=== PATIENT | male | born 2005 | race Caucasian/White ===

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

== ENCOUNTER 2024-01-21 08:55 | Outpatient (REF) | payer MEDICAID, SELFPAY ==
[2024-01-21 13:13] LABS: Anion Gap 10 (12-20); Blood Urea Nitrogen 15 mg/dL (9-16); Calcium 9.5 mg/dL (8.4-10.2); Carbon Dioxide 29 mmol/L (22-29); Chloride 104 mmol/L (96-108); Cholesterol 209 mg/dL (<200); Estimated Glomerular Filt Rate > 60; Glucose Random 78 mg/dL (60-115); HDL Cholesterol 35 mg/dL (>40); LDL Cholesterol Calculated 145 mg/dL (<100); Potassium 3.7 mmol/L (3.3-5.1); Sodium 139 mmol/L (135-145); Triglycerides 146 mg/dL (<150)
== END 2024-01-21 08:56 | disposition home or self-care (01) ==
LOC: HO.HHCL 08:55
PROVIDERS: Visit Provider Nurse Practitioner Primary Care
DX: I10 Essential (primary) hypertension (principal); E78.5 Hyperlipidemia, unspecified
CPT/HCPCS: 36415; 80048; 80061

== ENCOUNTER → 2024-07-15 09:46 | Outpatient (REF) | payer MEDICAID, SELFPAY | LOC: HO.SL 09:46 | PROVIDERS: PCP Nurse Practitioner Primary Care; Visit Provider Nurse Practitioner Primary Care | DX: G47.33 Obstructive sleep apnea (adult) (pediatric) (principal) | CPT/HCPCS: 95806 ==

== ENCOUNTER → 2024-07-15 19:00 | Outpatient (BNV) | payer MEDICAID, SELFPAY | PROVIDERS: PCP Nurse Practitioner Primary Care; Visit Provider Internal Medicine | DX: G47.33 Obstructive sleep apnea (adult) (pediatric) (principal) | CPT/HCPCS: 95806 ==

== ENCOUNTER 2025-02-05 10:23 | Outpatient (REF) | payer MEDICAID, SELFPAY ==
--- OUTSIDE RECORDS SUMMARY | 2025-02-05 11:29 | XMS_ITS | Clinical Summary ---
Author Organization [employer] Address [address] [facility] 7[address] [place] [address] Care Team Providers Care Level Vial Setter Name Role Phone Johanny Kruger DAYO Primary Care Provider Allergies Active Allergy Reactions Criticality Noted Date Comments Aspirin 05/22/2018 Penicillins 05/22/2018 Shellfish Allergy Anaphylaxis High 11/27/2022 Medications lurasidone (Latuda) 20 MG tablet Take 20 mg by mouth Once per day. Active ibuprofen 800 MG tablet Take 800 mg by mouth if needed in the morning, at noon, and at bedtime. 2 Active Fluocinolone Acetonide Scalp 0.01 % oilIndications:Se borrheic dermatitis Use as directed, apply to scalp and keep on for at least 4 hours and up to 8 hours. Apply at bedtime and wash off in AM. 118 mL 1 4 Active albuterol (Ventolin HFA) 108 (90 Base) MCG/ACT inhalerIndication s:Mild intermittent asthma in adult without complication Inhale 2 puffs by mouth every 4 to 6 hours as needed for wheezing; adminster with spacer 36 g 4 Active Blood Pressure kitIndications:Hy pertension, unspecified type 1 kit in the morning. 1 kit 4 Active montelukast (Singulair) 10 MG tabletIndications :Mild intermittent asthma, unspecified whether complicated Take 1 tablet (10 mg) by mouth Once daily. 90 tablet 3 5 Active ketoconazole (NIZOral) 2 % shampooIndication s:Seborrheic dermatitis Use as directed, every 2-3 days 120 mL 5 5 Active EPINEPHrine (Epipen) 0.3 MG/0.3ML injection syringeIndication s:Shellfish allergy Inject 0.3 mL (0.3 mg) as directed 1 (one) time if needed for anaphylaxis. 2 each 5 Active Tirzepatide-Weigh t Management 10 MG/0.5ML solution auto-injectorIndi cations:Class 3 severe obesity with serious comorbidity and body mass index (BMI) of 50.0 to 59.9 in adult, unspecified obesity type Inject 0.5 mL (10 mg) under the skin 1 (one) time per week. 2 mL 2 5 Active triamcinolone (Kenalog) 0.1 % creamIndications: Irritant contact dermatitis due to other chemical products Apply twice daily to affected area 45 g 5 Active Active Problems Problem Noted Date Diagnosed Date Nocturnal hypoxemia 08/19/2024 Class 3 severe obesity with serious comorbidity and body mass index (BMI) of 45.0 to 49.9 in adult 08/19/2024 Elevated hemoglobin A1c 02/01/2023 Overview (02/01/2023): Previously ordered, encouraged to get drawn Seborrheic dermatitis 02/01/2023 Elevated lipids 02/01/2023 Overview (08/19/2024): Lifestyle recommendations to improve heart health & lower cholesterol: be as active as able, ideally exercise 150min moderate intensity or 75min vigorous intensity weekly; increase intake of vegetables, fruits, whole grains, fish. Try to minimize intake of sugary or greasy food and drink. Use olive oil or vegetable, peanut, canola, or similar oil for cooking. Decrease or stop drinking alcohol if you drink, quit/decrease smoking if you smoke. 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 Hypertensive disorder 05/22/2018 Overweight 05/22/2018 ILDA (obstructive sleep apnea) 05/22/2018 Overview (08/19/2024): With nocturnal hypoxemia Last sleep study June 2024 Recommended auto CPAP 6 to 20 cm DME Rx generated 08/19/24 Gave patient info to schedule sleep medicine for follow-up Encounters Date Type Department Care Team Description 02/05/2025 10:00 AM EDT Office Visit [address] [address] Johanny Kruger ANP Class 3 severe obesity with serious comorbidity and body mass index (BMI) of 45.0 to 49.9 in adult, unspecified obesity type (Primary Dx); ILDA (obstructive sleep apnea); Primary hypertension; Elevated lipids; Irritant contact dermatitis due to other chemical products 02/05/2025 Travel 02/04/2025 Telephone [facility] MEDICINE [address] [place] [phone] Yash Conner [place] CHART PREP 01/26/[address] [address] Johanny Kruger ANP Durable Medical Equipment 01/09/2025 Telephone [facility] MEDICINE [address] [place] [phone] Johanny Kruger ANP Durable Medical Equipment 12/12/2024 Telephone [facility] MED & PEDS [address] [place] [address] Johanny Kruger ANP Med Refill 12/05/2024 Population Health Risk Score [facility] () Department [address] [address] Provider, Population Health Generic 12/02/2024 Telephone [facility] MEDICINE [address] [place] [phone] Johanny Kruger ANP PA 11/12/[address] [address] Johanny Kruger ANP Med Refill; Prior Authorization ([employer]) from Last 3 Months Immunizations Immunization Administration Dates Next Due DTaP 05/05/2008, 5,2004,08/30,2004 HPV 9-Valent 11/02/2015,04/27/2015 HPV, Unspecified 06/30/2015 Hep A, ped/adol, 2 dose 02/04/2008,06/08/2007 Hep B, Adolescent or Pediatric 2004,2003,2004 HiB, unspecified 08/03/2005,2004 Hib (PRP-T) 2004 IPV 05/05/2008, 5,2004,06/29 Influenza injectable quadriv alent preservative free 10/27/2022,11/10/2021,09/21/2020,06/23,07/01/2018 Influenza, seasonal, injecta ble, preservative free 11/07/2024 MMR 05/29/2018,05/05/2008,2004 Meningococcal MCV4P ACYW-135 11/19/2020,04/27/20 15 Pfizer Covid-19 Vaccine 12+ 01/30/2021, Pfizer Covid-19 Vaccine 12+ Bivalent 10/27/2022 Pneumococcal Conjugate PCV 13 2004, 004,2004 TD (adult), 2 Lf tetanus tox oid, preservative free, adsorbed 05/16/2024 Tdap 05/04/2014 Varicella 05/05/2008,05/09/2005 Social History Tobacco Use Types Packs/Day Years Used Date Smoking Tobacco: Never Passive Smoke Exposure: Never Smokeless Tobacco: Never Tobacco Cessation:Counseling Given: Not Answered Alcohol Use Standard Drinks/Week Comments Never 0 (1 standard drink = 0.6 oz pur e alcohol) Depression Answer Date Recorded Patient Health Questionnaire-9 Score 0 02/05/2025 Patient Health Questionnaire-9 Score 0 02/05/2025 Last PHQ-9: Questionnaire Data Not on file 0 02/05/2025 Housing Stability Answer Date Recorded What is your housing situation today? I have tonie ramsay 11/15/[address] you li ve. Do you have problems with any of the following? None of the above 11/15/2023 Food Insecurity Answer Date Recorded Within the past 12 months, y ou worried that your food would run out before you got money to buy more: Never True 11/23/2023 Within the past 12 months,th e food you bought just didn't last and you didn't have enough money to get more: Never True 09/2023 Transportation Answer Date Recorded In the past 12 months, has l ack of transportation kept you from medical appts, meetings, work or from getting things needed for daily living? No 11/15/2023 Utilities Answer Date Recorded In the past 12 months, has t he electric, gas, oil or water company threatened to shut off services in your home? No 11/15/2023 Depression Answer Date Recorded Patient Health Questionnaire-2 Score 0 02/05/2025 Internet Access Answer Date Recorded Internet Access Q1 Yes 05/26/2024 Internet Access Q2 Not on file 05/26/2024 Sex and Gender Information Value Date Recorded Sex Assigned at Male 07/24/2022 10:34 AM EDT Legal Sex Male 10:34 AM EDT Gender Identity Male 07/24/2022 10:34 AM EDT Sexual Orientation Straight 07/24/2022 10 :34 AM EDT Last Filed Vital Signs Vital Sign Reading Time Taken Comments Blood Pressure 124/72 02/05/2025 9:36 AM EDT Pulse 79 02/05/2025 9:36 AM EDT Temperature 36.8 ??C (98.2 ??F) 11/07/2024 9:03 AM ES T Respiratory Rate 20 02/05/2025 9:36 AM EDT Oxygen Saturation 98% 11/07/2024 9:03 AM EST Inhaled Oxygen Concentration - - Weight 141 kg (310 lb) 02/05/2025 9:36 AM EDT Height 171 cm (5' 7.32 ) 02/05/2025 9:36 AM EDT Body Mass Index 48.09 02/05/2025 9:36 AM EDT Plan of Treatment Upcoming Encounters Date Type Department Care Team (Late st Contact Info) Description 03/03/2025 8:00 AM EDT Office Visit [facility] ADULT DENTAL [address] [place] [address] Juliette Darnell 06/19/2025 10:00 AM EDT Office Visit [facility] OPTOMETRY [address] [place] [address] Emily Gonzalez, OD [address] [place] [address] Health Maintenance Due Date Last Done Comments Chlamydia and Gonorrhea Screening 2004 HIV Screening 2004 Pneumococcal Vaccine: Pediatrics (0 to 5 Years) and At-Risk Patients (6 to 49) Years) (1 of 1 - PPSV23) 2010 2004, 2004, 2004 Family Planning (PISQ) 2019 Meningococcal B Vaccine (1 of 2 - Standard) 2020 Hepatitis C Screening 2022 COVID-19 Vaccine ( - season) 2024 10/27/2022, 09/13/2021, 01/30/2021, Additional history exists Dental Oral Exam 06/13/2024 12/11/2023, 05/2021, 12/09/2020, Additional history exists Dental X-Ray: Bitewings 12/11/2024 12/11/19 24, 12/09/2020, 10/31/2018 Dental Prophylaxis 02/27/2025 08/28/2024, 0 12/11/2023, 08/02/2021, Additional history exists SDOH Screening 10/24/2025 10/24/2024 Alcohol/Substance Use Screening 11/07/2025 11/07/2024 Depression Screening 02/05/2026 02/05/2025, 02/06/20 25 Tobacco Screening 02/05/2026 02/05/2025 Dental X-Ray: Full Mouth 12/11/2026 024, 10/05/2021, 10/31/2018 Lipid Panel 01/20/2029 01/21/2024, 05/2024, 02/01/2023, Additional history exists DTaP/Tdap/Td Vaccines (8 - Td or Tdap) 05/16/2034 05/16/2024, 05/04/2014, 05/05/2008, Additional history exists Zoster Vaccines (1 of 2) 2054 RSV Patients and Patients Aged 60 years or older (1 - 1-dose 75+ series) 2079 Hepatitis B Vaccines Completed 2004, 2004, 2004 HIB Vaccines Completed 08/03/2005, 03/2004, 2004 Hepatitis A Vaccines Completed 02/04/2008, 06/08/20 07 IPV Vaccines Completed 05/05/2008, 05/2005, 2004, Additional history exists HPV Vaccines Completed 11/02/2015, 03/2015, 04/27/2015 Meningococcal Vaccine Completed 11/19/2020, 015 Influenza Vaccine Completed 11/07/2024, , 11/10/2021, Additional history exists RSV under 20 months Aged Out No longe r eligible based on patient's age to complete this topic Rotavirus Vaccines Aged Out No longer eligible based on patient's age to complete this topic Procedures Procedure Name Priority Date/Time Associated Diagnosis Comments Full PROPHYLAXIS - ADULT Routine 08/28/2024 8:00 AM EST Dental plaque Dental calculus LIPID PANEL, STANDARD Routine 01/21/2024 8:57 AM EDT Elevated lipids INTRAORAL - COMPLETE SERIES OF RADIOGRAPHIC IMAGES Routine 12/11/2023 10:00 AM EDT PERIODIC ORAL EVALUATION - ESTABLISHED PATIENT Routine 12/11/2023 10:00 AM EDT from Last 3 Months or Most Recently Relevant to Health Maintenance Results * (ABNORMAL) Lipid Panel, Standard (01/21/2024 8:57 AM EDT) Triglycerides 146 <150 mg/dL [facility] Comment:Desirable Triglyceri de: less than 90 mg/dLBorderline High Triglyceride: 90-129 mg/dLHigh Triglyceride: greater than 130 mg/dL Cholesterol 209(H) <200 mg/dL [facility] Comment:Desirable Cholestero l: less than 170 mg/dLBorderline High Cholesterol: 170-199 mg/dLHigh Cholesterol: greater than 200 mg/dL LDL Cholesterol Calculated 145(H) <100 mg/dL [facility] Comment:Desirable LDL: less than 110 mg/dLBorderline LDL: 110-129 mg/dLHigh LDL: greater than or equal to 130 mg/dL HDL Cholesterol 35(L) >40 mg/dL [facility] Comment:Desirable HDL: great er than 45 mg/dLBorderline HDL: 40-45 mg/dLLow HDL: less than 40 mg/dL Note: This HDL assay may give artificially low results in patients with liver disease. Blood Venous blood specimen / Unknown 01/21/2024 8:57 AM EDT 01/21/2024 11:32 AM EDT Johanny OSHEA LAB BLOOD ORDERABLES Final Resul t [facility] [address] [place] [address] [phone] from Last 3 Months or Most Recently Relevant to Health Maintenance [place] [address] [place] [address] STANDARD DENTAL-[facility] MEDICAID STAND CHILD Care Teams Level Vial Setter Relationship Specialty Start Date End Date Johanny Kruger ANP [address] [place] [phone] PCP - General Family Medicine 06/01/22
--- OUTSIDE RECORDS SUMMARY | 2025-02-05 11:29 | XMS_ITS | Encounter Summary ---
Author Organization [employer] Address [address] [facility] [address] [place] [address] Care Team Providers Care Game Designer/Creative Director Name Role Phone Johanny Kruger Primary Care Provider [phone] Reason for Visit * Reason Onset Date Comments Script for Blood Pressure Kit 05/07/2023 Encounter Details Date Type Department Care Team ([facility] st Contact Info) Description 05/07/2023 Telephone [facility] MEDICINE [address] [place], [place] [phone] Johanny Kruger ANP [address] [place] [address] Script for Blood Pressure Kit Social History Tobacco Use Types Packs/Day Years Used Date Smoking Tobacco: Never Passive Smoke Exposure: Never Smokeless Tobacco: Never Alcohol Use Standard Drinks/Week Comments Never 0 (1 standard drink = 0.6 oz pur e alcohol) Depression Answer Date Recorded Patient Health Questionnaire-2 Score 0 10/27/2022 Sex and Gender Information Value Date Recorded Sex Assigned at Male 07/24/2022 10:34 AM EDT Legal Sex Male 10:34 AM EDT Gender Identity Male 07/24/2022 10:34 AM EDT Sexual Orientation Straight 07/24/2022 10 :34 AM EDT documented as of this encounter Miscellaneous Notes * Telephone Encounter - Rafy Knight - 05/07/2023 3:41 PM EDT Tc from Fabiana with [facility] informing that they do not do DME script must look for another pharmacy for Bloodpressure Kit. Please contact Fabiana if any questions at [phone] documented in this encounter Plan of Treatment Upcoming Encounters Date Type Department Care Team (Late st Contact Info) Description 03/03/2025 8:00 AM EDT Office Visit [facility] ADULT DENTAL [address] [place], [place] [phone] Juliette Darnell 06/19/2025 10:00 AM EDT Office Visit [facility] OPTOMETRY [address] [place], [place] [phone] Emily Gonzalez, OD [address] [place] [address] documented as of this encounter Visit Diagnoses Not on filedocumented in this encounter Care Teams Game Designer/Creative Director Relationship Specialty Start Date End Date Johanny Kruger ANP [address] [place] [address] PCP - General Family Medicine 06/01/22 documented as of this encounter
--- OUTSIDE RECORDS SUMMARY | 2025-02-05 11:29 | XMS_ITS | Encounter Summary ---
Author Organization [employer] Address [address] [facility] [address] [place] [address] Care Team Providers Care Agricultural Systems Specialist Name Role Phone Johanny Kruger Primary Care Provider [phone] Reason for Visit * Reason Onset Date Comments CHART PREP 02/04/2025 Encounter Details Date Type Department Care Team ([facility] st Contact Info) Description 02/04/2025 Telephone [facility] MEDICINE [address] [place], [place] [phone] Yash Conner [place] CHART PREP Social History Tobacco Use Types Packs/Day Years [...] encounter Miscellaneous Notes * Telephone Encounter - Yash Conner [place] - 02/04/2025 2:39 PM EDT ..Chart Prep Labs: not done Images: not applicable Referrals: complete Vaccines due: PCV20, MEN B Screenings: STI screening Overdue care gaps: PHQ-9, CHAYA-7, and Disability screen documented in this encounter Plan of Treatment Upcoming Encounters Date Type Department Care Team (Late st Contact Info) Description 03/03/2025 8:00 AM EDT Office Visit [facility] ADULT DENTAL [address] [place] [address] Juliette Darnell 06/19/2025 10:00 AM EDT Office Visit [facility] OPTOMETRY [address] [place] [address] Carlos, Emily, OD [address] [place] [address] documented as of this encounter Visit Diagnoses Not on filedocumented in this encounter Additional Health Concerns Assessment Noted Time PHQ-9 Depression Total Score: 0 11/23/19 24 8:59 AM EST documented as of this encounter Care Teams Agricultural Systems Specialist Relationship Specialty Start Date End Date Johanny Kruger ANP [address] [place] [address] PCP - General Family Medicine 06/01/22 documented as of this encounter
--- OUTSIDE RECORDS SUMMARY | 2025-02-05 11:29 | XMS_ITS | Encounter Summary ---
Author Organization [employer] Address [address] [place] [address] Care Team Providers Care Chemical Research Worker Name Role Phone Johanny Kruger Primary Care Provider Encounter Details Date Type Department Care Team (Late st Contact Info) Description 02/05/2025 10:00 AM EDT Office Visit [facility] MEDICINE [address], [place] [id number] Johanny Kruger ANP [address], [place] [id number] Class 3 severe obesity with serious comorbidity and body mass index (BMI) of 45.0 to 49.9 in adult, unspecified obesity type (Primary Dx); ILDA (obstructive sleep apnea); Primary hypertension; Elevated lipids; Irritant contact dermatitis due to other chemical products Social History Tobacco Use Types Packs/Day Years [...] AM EDT documented as of this encounter Last Filed Vital Signs Vital Sign Reading Time Taken Comments Blood Pressure 124/72 02/05/2025 9:36 AM EDT Pulse 79 02/05/2025 9:36 AM EDT Temperature - - Respiratory Rate 20 02/05/2025 9:36 AM EDT Oxygen Saturation - - Inhaled Oxygen Concentration - - Weight 141 kg (310 lb) 02/05/2025 9:36 AM EDT Height 171 cm (5' 7.32 ) 02/05/2025 9:36 AM EDT Body Mass Index 48.09 02/05/2025 9:36 AM EDT documented in this encounter Functional Status * Over the past 2 weeks, how often have you been bothered by any of the following problems? Question Answer Date of Assessment Author Little interest or pleasure in doing things Not at all 02/05/2025 9:38 AM EDT Yash Conner MA Feeling down, depressed, or hopeless Not at all 02/05/2025 9:38 AM EDT Yash Conner MA Patient Health Questionnaire -2 Score 0 02/05/2025 9:38 AM EDT Yash Conner MA * Trouble falling or staying asleep, or sleeping too much Answer Date of Assessment Author Not at all 02/05/2025 9:38 AM EDT Yash Conner MA * Feeling tired or having little energy Answer Date of Assessment Author Not at all 02/05/2025 9:38 AM EDT Yash Conner MA * Poor appetite or overeating Answer Date of Assessment Author Not at all 02/05/2025 9:38 AM EDT Yash Conner MA * Feeling bad about yourself - or that you are a failure or have let yourself or your family down Answer Date of Assessment Author Not at all 02/05/2025 9:38 AM EDT Yash Conner MA * Trouble concentrating on things, such as reading the newspaper or watching television Answer Date of Assessment Author Not at all 02/05/2025 9:38 AM EDT Yash Conner MA * Moving or speaking so slowly that other people could have noticed? Or the opposite - being so fidgety or restless that you have been moving around a lot more than usual. Answer Date of Assessment Author Not at all 02/05/2025 9:38 AM EDT Yash Conner MA * Thoughts that you would be better off or hurting yourself in some way Answer Date of Assessment Author Not at all 02/05/2025 9:38 AM BETTYT Yash Conner MA * Patient Health Questionnaire-9 Score Answer Date of Assessment Author 0 02/05/2025 9:38 AM BETTYT Yash Conner MA * Over the last 2 weeks, how often have you been bothered by any of the following problems? Question Answer Date of Assessment Author Feeling nervous, anxious, or on edge 0 02/05/2025 9:39 AM EDT Yash Conner MA Not being able to stop or co ntrol worrying 0 02/05/2025 9:39 AM BETTYT Yash Conner MA Worrying too much about diff erent things 0 02/05/2025 9:39 AM EDT Yash Conner MA Trouble relaxing 0 02/05/2025 9:39 AM EDT Yash Currie MA Being so restless that it is hard to sit still 0 02/05/2025 9:39 AM EDT Yash Conner MA Becoming easily annoyed or irritable 0 02/05/2025 9:39 AM EDT Yash Conner MA Feeling afraid as if somethi ng awful might happen 0 02/05/2025 9:39 AM EDT Yash Conner MA CHAYA-7 Total Score 0 02/05/2025 9:39 AM EDT Yash Conner MA documented as of this encounter Progress Notes * DAYO Long - 02/05/2025 10:00 AM EDT Subjective Patient ID: Jose Coe is a 19 y.o. male who presents for No chief complaint on file.. HPI Here today for follow-up/weight check. Tolerating zepbound (tirzepatide) well, denies side effects. BMI Readings from Last 3 Encounters: 02/05/25 48.09 kg/m?? 11/07/24 52.74 kg/m?? 08/19/24 53.22 kg/m?? Wt Readings from Last 3 Encounters: 02/05/25 310 lb (141 kg) 11/07/24 340 lb (154 kg) 08/19/24 350 lb (159 kg) Has had improvement in secondary outcomes with weight loss medication use. Understands that weight loss medications must be used as part of a comprehensive lifestyle plan that incorporates daily exercise, adequate protein intake, decreased soda and sugary beverage consumption, decreased caloric intake. He is walking more, lifting heavy things at work but not explicitly exercising. We discuss doing this more. Does have rash and itchiness on R hand 4th and 5th fingers, thinks from work/dishwashing. Lab Results Component Value Date HGBA1C 5.4 02/01/2023 Never smoker Lives w/ parents. Review of Systems Constitutional: Negative for fatigue, fever and unexpected weight change. HENT: Negative for sore throat. Respiratory: Negative for cough. Gastrointestinal: Negative for abdominal pain and constipation. Endocrine: Negative for polydipsia, polyphagia and polyuria. Musculoskeletal: Negative for arthralgias. Skin: Positive for rash. Psychiatric/Behavioral: Negative for agitation and confusion. The patient is not nervous/anxious. Objective BP 124/72 (BP Location: Right arm, Patient Position: Sitting, BP Cuff Size: Large adult) Pulse 79 Resp 20 Ht 5' 7.32 (1.71 m) Wt 310 lb (141 kg) BMI 48.09 kg/m?? Physical Exam Constitutional: General: He is not in acute distress. Appearance: Normal appearance. He is obese. He is not ill-appearing. HENT: Head: Normocephalic and atraumatic. Eyes: General: No scleral icterus. Extraocular Movements: Extraocular movements intact. Pupils: Pupils are equal, round, and reactive to light. Cardiovascular: Rate and Rhythm: Normal rate and regular rhythm. Pulmonary: Effort: Pulmonary effort is normal. No accessory muscle usage or respiratory distress. Skin: Comments: Dry, erythematous rash to 4th and 5th fingers on R hand w/ some excoriated areas Neurological: Mental Status: He is alert and oriented to person, place, and time. Psychiatric: Mood and Affect: Mood normal. Behavior: Behavior normal. Assessment/Plan Diagnoses and all orders for this visit: Class 3 severe obesity with serious comorbidity and body mass index (BMI) of 45.0 to 49.9 in adult,unspecified obesity type Here today for follow-up/weight check. Tolerating zepbound (tirzepatide) well, denies side effects. BMI Readings from Last 3 Encounters: 02/05/25 48.09 kg/m?? 11/07/24 52.74 kg/m?? 08/19/24 53.22 kg/m?? Wt Readings from Last 3 Encounters: 02/05/25 310 lb (141 kg) 11/07/24 340 lb (154 kg) 08/19/24 350 lb (159 kg) Has had improvement in secondary outcomes with weight loss medication use. Understands that weight loss medications must be used as part of a comprehensive lifestyle plan that incorporates daily exercise, adequate protein intake, decreased soda and sugary beverage consumption, decreased caloric intake. We will stay at 10mg dose, he has lost significant weight and feeling good. Encouraging increase toexercise. - Hemoglobin A1c; Future ILDA (obstructive sleep apnea) Cont to use CPAP and benefit from same Primary hypertension At/near goal today, </= 130/80. Continue to encourage low salt diet, regular exercise, home BP monitoring Call clinic if BP is frequently >150/90 Go to ED/call 911 if > 170/100 and having sx such as [place], visual changes, chest pain, SOB Last renal function: Lab Results Component Value Date GLUCOSE 78 01/21/2024 NA 139 01/21/2024 K 3.7 01/21/2024 CO2 29 01/21/2024 CL 104 01/21/2024 BUN 15 01/21/2024 CREATININE 1.22 01/21/2024 EGFR >60 01/21/2024 No results found for: MICROALBCREA No results found for: MICROALBCREU Elevated lipids - Lipid Panel, Standard; Future Irritant contact dermatitis due to other chemical products Wear gloves at work, use topical steroid prn and moisturize well. - triamcinolone (Kenalog) 0.1 % cream; Apply twice daily to affected area documented in this encounter Plan of Treatment Upcoming Encounters Date Type Department Care Team (Late st Contact Info) Description 03/03/2025 8:00 AM EDT Office Visit [facility] ADULT DENTAL [address] [place] [address] MannJuliette elizondo 06/19/2025 10:00 AM EDT Office Visit [facility] OPTOMETRY [address] [place] [address] Carlos, Emily, OD [address] [place] [address] Scheduled Orders Name Type Priority Associated Diagnoses Orde r Schedule Hemoglobin A1c Lab Routine Class 3 severe obesity with serious comorbidity and body mass index (BMI) of 45.0 to 49.9 in adult, unspecified obesity type Expected: 02/05/2025 (Approximate), Expires: 02/05/2026 Lipid Panel, Standard Lab Routine Elevated lipids Expected: 02/05/2025 (Approximate), Expires: 02/05/2026 documented as of this encounter Visit Diagnoses Diagnosis Class 3 severe obesity with serious comorbidity and body mass index (BMI) of 45.0 to 49.9 in adult, unspecified obesity type- Primary ILDA (obstructive sleep apnea) Obstructive sleep apnea (adult) (pediatric) Primary hypertension Unspecified essential hypertension Elevated lipids Irritant contact dermatitis due to other chemical products documented in this encounter Additional Health Concerns Assessment Noted Time PHQ-9 Depression Total Score: 0 02/06/20 25 9:38 AM EDT documented as of this encounter Care Teams Chemical Research Worker Relationship Specialty Start Date End Date Johanny Kruger ANP [address] [place] [address] PCP - General Family Medicine 06/01/22 documented as of this encounter
--- OUTSIDE RECORDS SUMMARY | 2025-02-05 11:29 | XMS_ITS | Encounter Summary ---
Author Organization [employer] Address [address] [facility] [address] [place] [address] Care Team Providers Care Final Installer Inspector Name Role Phone Saskia Johanny OSHEA Primary Care Provider [phone] Encounter Details Date Type Department Care Team (Latest Contact Info) Description 02/05/2025 Travel Social History Tobacco Use Types Packs/Day Years [...] AM EDT documented as of this encounter Functional Status * Over the [...] Not at all 02/05/2025 9:38 AM EDT Yahs Conner MA * Thoughts that you would be better off or hurting yourself in some way Answer Date of Assessment Author Not at all 02/05/2025 9:38 AM EDT Yash Conner MA * Patient Health Questionnaire-9 Score Answer Date of Assessment Author 0 02/05/2025 9:38 AM EDT Yash Conner MA * Over the last 2 weeks, how often have you been bothered by any of the following problems? Question Answer Date of Assessment Author Feeling nervous, anxious, or on edge 0 02/05/2025 9:39 AM EDT Yash Conner MA Not being able to stop or co ntrol worrying 0 02/05/2025 9:39 AM EDT Yash Conner MA Worrying too much about [...] Conner MA documented as of this encounter Plan of Treatment Upcoming Encounters Date Type Department Care Team (Late st Contact Info) Description 03/03/2025 8:00 AM EDT Office Visit [facility] ADULT DENTAL [address] [place] [address] Juliette Darnell 06/19/2025 10:00 AM EDT Office Visit [facility] OPTOMETRY [address] [place] [address] Emily Gonzalez, OD [address] [place] [address] documented as of this encounter Visit Diagnoses Not on filedocumented in this encounter Additional Health Concerns Assessment Noted Time PHQ-9 Depression Total Score: 0 02/06/20 25 9:38 AM EDT documented as of this encounter Care Teams Final Installer Inspector Relationship Specialty Start Date End Date Johanny Kruger ANP [address] [place] [address] PCP - General Family Medicine 06/01/22 documented as of this encounter
[2025-02-05 12:01] LABS: Estimated Average Glucose 108 mg/dL; Hemoglobin A1C 135.8745 umol/L; Hemoglobin A1c % 5.4 % (<6.0); Total Hemoglobin (HGBA1C) 3848.5887 umol/L
[2025-02-05 12:25] LABS: Alanine Aminotransferase 38 U/L (0-40); Albumin Level 4.4 g/dL (3.5-5.0); Alkaline Phosphatase 47 U/L (39-117); Amylase 58 U/L (28-100); Anion Gap 11 (12-20); Aspartate Amino Transferase 31 U/L (5-37); Bilirubin Total 0.6 mg/dL (0.0-1.0); Blood Urea Nitrogen 14 mg/dL (9-16); Calcium 9.5 mg/dL (8.4-10.2); Carbon Dioxide 27 mmol/L (22-29); Chloride 110 mmol/L (96-108); Cholesterol 164 mg/dL (<200); Estimated Glomerular Filt Rate > 60; Glucose Random 75 mg/dL (60-115); HDL Cholesterol 28 mg/dL (>40); LDL Cholesterol Calculated 124 mg/dL (<100); Lipase 18 U/L (8-78); Potassium 3.5 mmol/L (3.3-5.1); Sodium 144 mmol/L (135-145); Total Protein 7.2 g/dL (6.5-8.0); Triglycerides 63 mg/dL (<150)
== END 2025-02-05 10:24 | disposition home or self-care (01) ==
LOC: HO.HHCL 10:23
PROVIDERS: Visit Provider Nurse Practitioner Primary Care
DX: R10.11 Right upper quadrant pain (principal); E66.813 Obesity, class 3; Z68.42 Body mass index [BMI] 45.0-49.9, adult; E78.5 Hyperlipidemia, unspecified
CPT/HCPCS: 36415; 80053; 80061; 82150; 83036; 83690